=== PATIENT | female | born 1985 | race African-American/Black ===

== ENCOUNTER 2018-01-03 08:36 | Inpatient (IN) | payer OTHER ==
[2018-01-03 09:34] VITALS: BMI 22.0
--- NOTE | 2018-01-03 11:32 | CONSULT ---
[facility] Psychiatric Consult - Data Date of interview: 01/03/18 Admission source: [facility] Identifying data: This is 32 years old female, single, mother of three, living with boyfriend, unemployed, on SSI and SSD, lookong for detox from: Alcohol, Cannabis, Nicotine Substance Abuse History: Cannabis since 17 years old untill present. Alcohol since 20 years old until pfresent. Nicotine since 20 years old untill present Psychiatric History: Patient reports history of Bipolar disorder, history of psytchiatric hospitalizations, most recently 4 weeks ago at [facility] afyter incident with her Father. Currently: [place] 300mg poqd. Patient reports sucidal history with suicidal ideation , with recent OD with on yesterday. Current medications: [place] 600mg po qhs. Prozac 10poqd. Seroquel 25mg po qhs Physical/Sexual Abuse/Trauma History: Denies Additional Comment: [place] 600mg po qhs. Prozac 10poqd. Seroquel 25mg po qhs Mental Status Exam - Mental Status Exam Alert and Oriented to: Person Cognitive Function: Fair Patient Appearance: Well Groomed Mood: Apprehensive Affect: Mood Congruent Patient Behavior: Cooperative Speech Pattern: Appropriate Voice Loudness: Mildly Loud Thought Process: Goal Oriented Thought Disorder: Being Controlled Hallucinations: Denies Suicidal Ideation: Denies Homicidal Ideation: Denies Insight/Judgement: Fair Sleep: Fair Appetite: Fair Muscle strength/Tone: Normal Gait/Station: Normal Additional Comments: [place] 600mg po qhs. Prozac 10poqd. Seroquel 25mg po qhs Psychiatric Findings - Problem List ([place] 1, 2,3) (1) Alcohol dependence Current Visit: Yes Status: Acute (2) Cannabis dependence Current Visit: Yes Status: Acute (3) Nicotine dependence Current Visit: Yes Status: Acute (4) Bipolar I disorder Current Visit: Yes Status: Acute (5) Drug-induced mood disorder Current Visit: Yes Status: Acute - Initial Treatment Plan Initial Treatment Plan: [place] 600mg po qhs. Prozac 10poqd. Seroquel 25mg po qhs
--- NOTE | 2018-01-03 12:19 | HP ---
CIWA Score - CIWA Score Nausea/Vomitin Muscle Tremors: 3 Anxiety: 3 Agitation: 3 Paroxysmal Sweats: 2 Orientation: 0-Oriented Tacttile Disturbances: 2-Mild Itch/Numbness/Burn Auditory Disturbances: 2-Mild Harshness/Frighten Visual Disturbances: 1-Very Mild Sensitivity Headache: 2-Mild CIWA-Ar Total Score: 21 Admission ROS BHS - HPI Chief Complaint: I AM HERE ,NEED HELP TO STOP DRINKING ALCOHOL AND WEED Allergies/Adverse Reactions: Allergies Allergy/AdvReac Type Severity Reaction Status Date / Time bee pollen Allergy Severe Swelling Verified 01/03/18 10:34 No Known Drug Allergies Allergy Verified 01/03/18 12:01 NKDA Allergy Uncoded 01/03/18 10:34 History of Present Illness: THIS 32 YEARS OLD FEMALE WITH ALCOHOL AND MARIJUANA DEPENDENCE,SEEKING DETOX, WITHDRAWAL SYMPTOM, SEIZURE LAST 2014 FROM K2 BIPOLAR DISORDER ,WITH DEPRESSION,PTSD WEIGHT LOSS NICOTINE DEPENDENCE SEEN IN [facility] LAST NIGHT OVERDOSE CLEAR BY PSYCHIATRIST AT [place] Exam Limitations: No Limitations - Ebola screening Have you traveled outside of the country in the last 21 days: No Have you had contact with anyone from an Ebola affected area: No Have you been sick,other than usual withdrawal symptoms: No - Review of Systems Constitutional: Loss of Appetite, Malaise, Night Sweats, Changes in sleep, Weakness, Unintentional Wgt. Loss EENT: reports: Tearing, Nose Congestion Respiratory: reports: No Symptoms reported Cardiac: reports: No Symptoms Reported GI: reports: Diarrhea, Nausea, Vomiting, Abdominal cramping : reports: No Symptoms Reported Musculoskeletal: reports: Back Pain, Muscle Pain Integumentary: reports: Dryness Neuro: reports: Headache, Tremors Endocrine: reports: No Symptoms Reported Hematology: reports: No Symptoms Reported Psychiatric: reports: No Sypmtoms Reported, Judgement Intact, Mood/Affect Appropiate, Depressed Patient History - Patient Medical History Hx Asthma: No Hx Chronic Obstructive Pulmonary Disease (COPD): No Hx Cardiac Disorders: No Hx Hypertension: No Hx Seizures: Yes (drug related seizure in 2016) Hx Diabetes: No Hx Gastrointestinal Disorders: Yes (acid reflux) Hx Genitourinary Disorders: No Hx Sexually Transmitted Disorders: Yes (chlamydia) Hx Renal Disease (ESRD): No Hx Thyroid Disease: No Hx Human Immunodeficiency Virus (HIV): No (LAST 09/04) Hx Hepatitis C: No Hx Depression: Yes Hx Suicide Attempt: Yes (pill overdose, 01/01/2018) Hx Bipolar Disorder: Yes Hx Schizophrenia: No Other Medical History: NO SUICIDAL,NO HOMICIDAL, - Patient Surgical History Past Surgical History: Yes Hx Neurologic Surgery: No Hx Cataract Extraction: No Hx Cardiac Surgery: No Hx Lung Surgery: No Hx Breast Surgery: No Hx Breast Biopsy: No Hx Abdominal Surgery: No Hx Appendectomy: No Hx Cholecystectomy: No Hx Genitourinary Surgery: No Hx Section: No Hx Orthopedic Surgery: No Other Surgical History: corrective sx, right foot at age 9 Anesthesia Reaction: No - PPD History Previous Implant?: Yes Documented Results: Negative w/o proof Implanted On Prior [facility] Admission?: No PPD to be Administered?: Yes - Reproductive History Patient is a Female of Child Bearing Age (11 -55 yrs old): Yes Last Menstrual Period: 12/26/16 Patient : No - Smoking Cessation Smoking history: Current every day smoker Have you smoked in the past 12 months: Yes Aproximately how many cigarettes per day: 10 Hx Chewing Tobacco Use: No Initiated information on smoking cessation: Yes 'Breaking Loose' booklet given: 01/03/18 - Substance & Tx. History Hx Alcohol Use: Yes Hx Substance Use: Yes Substance Use Type: Alcohol, Marijuana Hx Substance Use Treatment: No - Substances Abused Alcohol-vodka Route: Oral Frequency: Daily Amount used: 4-5 pts. Age of first use: 20 Date of Last Use: 01/02/18 Marijuana Route: Smoking Frequency: Daily Amount used: 10-15 joints Age of first use: 17 Date of Last Use: 01/01/18 Family Disease History - Family Disease History Family Disease History: Other: Father (ALCOHOL,DSA), Mother (ALCOHOL,DSA), Brother (ALCOHOL), Sister (ALCOHOL) Admission Physical Exam BHS - Vital Signs Vital Signs: Vital Signs - 24 hr 01/03/18 09:25 Temperature 97.3 F L Pulse Rate 77 Respiratory 18 Rate Blood Pressure 133/71 - Physical General Appearance: Yes: Moderate Distress, Tremorous, Irritable, Sweating, Anxious HEENTM: Yes: Normal ENT Inspection, DULCE, Pharynx Normal Respiratory: Yes: Lungs Clear, Normal Breath Sounds, No Respiratory Distress Neck: Yes: Within Normal Limits, Supple, Trachea in good position Breast: Yes: Breast Exam Deferred Cardiology: Yes: Within Normal Limits, Regular Rhythm, Regular Rate, S1, S2 Abdominal: Yes: Within Normal Limits, Normal Bowel Sounds, Non Tender, Flat, Soft Genitourinary: Yes: Within Normal Limits Back: Yes: Muscle Spasm Musculoskeletal: Yes: Back pain, Muscle Pain Extremities: Yes: Normal Range of Motion, Tremors Neurological: Yes: efficiency expert II-XII NML intact, Fully Oriented, Alert, Motor Strength 5/5 Integumentary: Yes: Dry Lymphatic: Yes: Within Normal Limits - Diagnostic (1) Alcohol dependence with uncomplicated withdrawal Current Visit: Yes Status: Acute (2) Alcohol related seizure Current Visit: Yes Status: Acute (3) Bipolar I disorder Current Visit: Yes Status: Acute (4) PTSD (post-traumatic stress disorder) Current Visit: Yes Status: Acute (5) Weight loss Current Visit: Yes Status: Acute (6) Nicotine dependence Current Visit: Yes Status: Acute Cleared for Admission S - Detox or Rehab [facility] Level of Care: Medically Managed Detox Regimen/Protocol: Librium S Breath Alcohol Content Breath Alcohol Content: 0 Urine Pregancy Test - Result Urine Test Results: Negative- NO Line Present Urine Drug Screen - Results Drug Screen Negative: No Urine Drug Screen Results: THC-Marijuana
[2018-01-03] MEDS ORDERED: LOPERAMIDE HCL 2 MG CAPSULE PO PRN (12:38)
[2018-01-03] MEDS ORDERED: ACETAMINOPHEN 325 MG TABLET (FP) PO PRN (12:38)
[2018-01-03] MEDS ORDERED: MENTHOL/PHENOL 1 EACH UD MM PRN (12:38)
[2018-01-03] MEDS ORDERED: P-EPHED 60MG/TRIPROLIDI 2.5MG TABLET PO PRN (12:38)
[2018-01-03] MEDS ORDERED: MAG HYDROX/AL HYDROX/SIMETH 30 ML UNIT-DOSE CUP PO PRN (12:38)
[2018-01-03] MEDS ORDERED: IBUPROFEN 400 MG TABLET (FP) PO PRN (12:38)
[2018-01-03] MEDS ORDERED: MAGNESIUM CITRATE 300 ML BOTTLE PO PRN (12:38)
[2018-01-03] MEDS ORDERED: MAGNESIUM HYDROX 2400MG/30ML ORAL SUSPENSION 30 ML CUP PO PRN (12:38)
[2018-01-03] MEDS ORDERED: chlordiazePOXIDE HCL 25 MG CAPSULE PO ONE (13:15)
[2018-01-03] MEDS: NICOTINE 21 MG/24 HOURS TOPICAL PATCH TD SCH (14:03)
--- NOTE | 2018-01-03 16:29 | EKG ---
Test Reason : Blood Pressure : / mmHG Vent. Rate : 061 BPM Atrial Rate : 061 BPM P-R Int : 120 ms QRS Dur : 090 ms QT Int : 426 ms P-R-T Axes : 034 054 055 degrees QTc Int : 428 ms NORMAL SINUS RHYTHM SEPTAL INFARCT , AGE UNDETERMINED ABNORMAL ECG NO PREVIOUS ECGS AVAILABLE Confirmed by KALYN JUAREZ MD ([id number]) on 01/03/2018 4:28:51 PM Referred By: Confirmed By:KALYN JUAREZ MD
[2018-01-03] MEDS: chlordiazePOXIDE HCL 25 MG CAPSULE PO SCH ×2 (17:22→22:14)
[2018-01-03 18:14] LABS: URINE APPEARANCE CLEAR; URINE BILIRUBIN NEGATIVE (NEGATIVE); URINE BLOOD NEGATIVE (NEGATIVE); URINE COLOR LTYELLOW; URINE GLUCOSE (UA) NEGATIVE (NEGATIVE); URINE KETONE NEGATIVE (NEGATIVE); URINE LEUK ESTERASE NEGATIVE (NEGATIVE); URINE NITRITE NEGATIVE (NEGATIVE); URINE PROTEIN NEGATIVE (NEGATIVE); URINE UROBILINOGEN NEGATIVE mg/dL (0.2-1.0)
[2018-01-03] MEDS: THIAMINE HCL 100 MG TABLET (FP) PO SCH (22:14)
[2018-01-03] MEDS: LITHIUM CARBONATE 300 MG CAPSULE (FP) PO SCH (22:14)
[2018-01-03] MEDS: QUEtiapine FUMARATE 25 MG TABLET (FP) PO SCH (22:14)
[2018-01-04] MEDS: chlordiazePOXIDE HCL 25 MG CAPSULE PO SCH ×4 (06:00→22:08)
[2018-01-04] MEDS: LITHIUM CARBONATE 300 MG CAPSULE (FP) PO SCH ×2 (06:36→22:08)
[2018-01-04 09:57] LABS: HEMATOCRIT 39.1 % (32.4-45.2); HEMOGLOBIN 12.5 GM/dL (10.7-15.3); MCH 29.6 pg (25.7-33.7); MCHC 31.9 g/dl (32.0-36.0); MEAN CELL VOLUME 92.8 fl (80-96); MEAN PLT VOLUME 9.5 fl (7.5-11.1); PLATELET COUNT 327 K/MM3 (134-434); RBC 4.22 M/mm3 (3.60-5.2); RDW 13.8 % (11.6-15.6); WHITE BLOOD COUNT 7.6 K/mm3 (4.0-10.0)
[2018-01-04 10:07] LABS: ALBUMIN 3.7 g/dl (3.4-5.0); ANION GAP 8 (8-16); BLOOD UREA NITROGEN 10 mg/dL (7-18); CALCIUM 8.9 mg/dL (8.5-10.1); CHLORIDE 104 mmol/L (98-107); CO2 28 mmol/L (21-32); GLUCOSE,RANDOM 70 mg/dL (74-106); POTASSIUM 4.4 mmol/L (3.5-5.1); SODIUM 140 mmol/L (136-145)
[2018-01-04 10:14] LABS: ALK PHOS 105 U/L (45-117); BILIRUBIN,TOTAL 0.5 mg/dL (0.2-1.0); CREATININE 0.7 mg/dL (0.55-1.02); SGOT/AST 28 U/L (15-37); SGPT/ALT 35 U/L (12-78)
--- NOTE | 2018-01-04 11:02 | PN ---
S CIWA - CIWA Score Nausea/Vomitin-No Nausea/No Vomiting Muscle Tremors: 4-Moderate,w/Arms Extend Anxiety: 3 Agitation: 4-Moderately Restless Paroxysmal Sweats: 3 Orientation: 0-Oriented Tacttile Disturbances: 0-None Auditory Disturbances: 0-None Visual Disturbances: 0-None Headache: 0-None Present CIWA-Ar Total Score: 14 BHS Progress Note (SOAP) Subjective: tired sweats irritable sleepy body aches Objective: 01/04/18 11:00 Vital Signs Temperature 97.8 F 01/04/18 06:00 Pulse Rate 80 01/04/18 06:00 Respiratory Rate 18 01/04/18 06:00 Blood Pressure 111/65 01/04/18 06:00 O2 Sat by Pulse Oximetry (%) Laboratory Tests 01/03/18 01/04/18 01/04/18 13:30 06:15 06:15 WBC 7.6 RBC 4.22 Hgb 12.5 Hct 39.1 MCV 92.8 MCH 29.6 MCHC 31.9 L RDW 13.8 Plt Count 327 MPV 9.5 Sodium 140 Potassium 4.4 Chloride 104 Carbon Dioxide 28 Anion Gap 8 BUN 10 Creatinine 0.7 Creat Clearance w eGFR > 60 Random Glucose 70 L Calcium 8.9 Total Bilirubin 0.5 AST 28 ALT 35 Alkaline Phosphatase 105 Total Protein 7.0 Albumin 3.7 Urine Color Ltyellow Urine Appearance Clear Urine pH 6.0 Ur Specific [place] 1.015 Urine Protein Negative Urine Glucose (UA) Negative Urine Ketones Negative Urine Blood Negative Urine Nitrite Negative Urine Bilirubin Negative Urine Urobilinogen Negative Ur Leukocyte Esterase Negative aaox3 lying in bed no acute distress Assessment: 01/04/18 11:01 withdrawal sx Plan: hold 10am librium increase fluids resume detox later
[2018-01-04] MEDS: NICOTINE 21 MG/24 HOURS TOPICAL PATCH TD SCH (11:09)
[2018-01-04] MEDS: FLUoxetine HCL 10 MG CAPSULE (FP) PO SCH (11:10)
[2018-01-04] MEDS: PRENATAL VITAMINS W/ FOLIC ACID TABLET (FP) PO SCH (11:10)
[2018-01-04] MEDS: chlordiazePOXIDE HCL 25 MG CAPSULE PO PRN (19:12)
[2018-01-04] MEDS: hydrOXYzine PAMOATE 50 MG CAPSULE (FP) PO PRN (19:12)
[2018-01-04] MEDS: guaiFENesin/D-METHORPHAN HB 10 ML UNIT-DOSE CUPS PO PRN (22:07)
[2018-01-04] MEDS: THIAMINE HCL 100 MG TABLET (FP) PO SCH (22:08)
[2018-01-04] MEDS: QUEtiapine FUMARATE 25 MG TABLET (FP) PO SCH (22:08)
[2018-01-05] MEDS: chlordiazePOXIDE HCL 25 MG CAPSULE PO PRN (06:30)
[2018-01-05] MEDS: chlordiazePOXIDE HCL 25 MG CAPSULE PO SCH ×2 (06:32→10:53)
[2018-01-05] MEDS: LITHIUM CARBONATE 300 MG CAPSULE (FP) PO SCH ×2 (10:53→22:59)
[2018-01-05] MEDS: PRENATAL VITAMINS W/ FOLIC ACID TABLET (FP) PO SCH (10:53)
[2018-01-05] MEDS: NICOTINE 21 MG/24 HOURS TOPICAL PATCH TD SCH (10:53)
[2018-01-05] MEDS: FLUoxetine HCL 10 MG CAPSULE (FP) PO SCH (10:53)
[2018-01-05] MEDS ORDERED: COLLOIDAL OATMEAL 1 BAR EACH TP PRN (12:31)
[2018-01-05] MEDS: TOLNAFTATE 1% CREAM 15 GM TUBE TP SCH ×2 (13:45→22:58)
[2018-01-05] MEDS: NICOTINE POLACRILEX 2 MG GUM BC PRN (13:48)
--- NOTE | 2018-01-05 13:54 | PN ---
S CIWA - CIWA Score Nausea/Vomitin Muscle Tremors: 3 Anxiety: 3 Agitation: 2 Paroxysmal Sweats: 1-Minimal Palms Moist Orientation: 0-Oriented Tacttile Disturbances: 1-Very Mild Itch/Numbness Auditory Disturbances: 1-Very Mild Visual Disturbances: 0-None Headache: 2-Mild CIWA-Ar Total Score: 16 BHS Progress Note (SOAP) Subjective: ALERT,IRRITABLE,ANXIOUS,INTERRUPTED SLEEP,TREMOR,RAH FACE ,ITCHING BOTH FEET Objective: 01/05/18 13:52 Vital Signs Temperature 98.1 F 01/05/18 09:50 Pulse Rate 97 H 01/05/18 09:50 Respiratory Rate 16 01/05/18 09:50 Blood Pressure 126/72 01/05/18 09:50 O2 Sat by Pulse Oximetry (%) Laboratory Last Values WBC 7.6 K/mm3 (4.0-10.0) 01/04/18 06:15 RBC 4.22 M/mm3 (3.60-5.2) 01/04/18 06:15 Hgb 12.5 GM/dL (10.7-15.3) 01/04/18 06:15 Hct 39.1 % (32.4-45.2) 01/04/18 06:15 MCV 92.8 fl (80-96) 01/04/18 06:15 MCH 29.6 pg (25.7-33.7) 01/04/18 06:15 MCHC 31.9 g/dl (32.0-36.0) L 01/04/18 06:15 RDW 13.8 % (11.6-15.6) 01/04/18 06:15 Plt Count 327 K/MM3 (134-434) 01/04/18 06:15 MPV 9.5 fl (7.5-11.1) 01/04/18 06:15 Sodium 140 mmol/L (136-145) 01/04/18 06:15 Potassium 4.4 mmol/L (3.5-5.1) 01/04/18 06:15 Chloride 104 mmol/L (98-107) 01/04/18 06:15 Carbon Dioxide 28 mmol/L (21-32) 01/04/18 06:15 Anion Gap 8 (8-16) 01/04/18 06:15 BUN 10 mg/dL (7-18) 01/04/18 06:15 Creatinine 0.7 mg/dL (0.55-1.02) 01/04/18 06:15 Creat Clearance w eGFR > 60 (>60) 01/04/18 06:15 Random Glucose 70 mg/dL (74-106) L 01/04/18 06:15 Calcium 8.9 mg/dL (8.5-10.1) 01/04/18 06:15 Total Bilirubin 0.5 mg/dL (0.2-1.0) 01/04/18 06:15 AST 28 U/L (15-37) 01/04/18 06:15 ALT 35 U/L (12-78) 01/04/18 06:15 Alkaline Phosphatase 105 U/L (45-117) 01/04/18 06:15 Total Protein 7.0 g/dl (6.4-8.2) 01/04/18 06:15 Albumin 3.7 g/dl (3.4-5.0) 01/04/18 06:15 Urine Color Ltyellow 01/03/18 13:30 Urine Appearance Clear 01/03/18 13:30 Urine pH 6.0 (5.0-8.0) 01/03/18 13:30 Ur Specific [place] 1.015 (1.001-1.035) 01/03/18 13:30 Urine Protein Negative (NEGATIVE) 01/03/18 13:30 Urine Glucose (UA) Negative (NEGATIVE) 01/03/18 13:30 Urine Ketones Negative (NEGATIVE) 01/03/18 13:30 Urine Blood Negative (NEGATIVE) 01/03/18 13:30 Urine Nitrite Negative (NEGATIVE) 01/03/18 13:30 Urine Bilirubin Negative (NEGATIVE) 01/03/18 13:30 Urine Urobilinogen Negative mg/dL (0.2-1.0) 01/03/18 13:30 Ur Leukocyte Esterase Negative (NEGATIVE) 01/03/18 13:30 RPR Titer Nonreactive (NONREACTIVE) 01/04/18 06:15 HIV 1&2 Antibody Screen Negative 01/04/18 08:00 HIV P24 Antigen Negative 01/04/18 08:00 Assessment: 01/05/18 13:53 WITHDRAWAL SYMPTOM Plan: CONTINUE DETOX,LIDEX CREAM !% FACE BID,AVEENO SOAP,1% TINACTIN CREAM BID FOR TINEA PEDIS
[2018-01-05] MEDS: FLUOCINONIDE 0.05% CREAM (15 GM TUBE) TP SCH ×2 (16:55→23:02)
[2018-01-05] MEDS: chlordiazePOXIDE 5 MG CAPSULE PO SCH ×2 (17:52→22:59)
[2018-01-05] MEDS: guaiFENesin/D-METHORPHAN HB 10 ML UNIT-DOSE CUPS PO PRN (17:55)
[2018-01-05] MEDS: THIAMINE HCL 100 MG TABLET (FP) PO SCH (22:57)
[2018-01-05] MEDS: QUEtiapine FUMARATE 25 MG TABLET (FP) PO SCH (22:58)
[2018-01-05] MEDS: hydrOXYzine PAMOATE 50 MG CAPSULE (FP) PO PRN (23:02)
--- NOTE | 2018-01-06 00:45 | PN ---
[facility] Progress Note Note: Psychiatry Attending's note (delayed) : Asked by CORRIE Rosen to change time of AM dose of lithium. Patient wishes dose dispensed earlier in the morning (9 AM instead of 10 AM). From a conversation that took place (with RN) between 3-4 pm on 01/05/18. Chart is reviewed. Dr Babin's note : read and appreciated. Spoke to patient tonight via telephone. RN on duty,Italia Reyes,witnessed conversation between patient and MD. Subject : treatment with lithium.Discussion of side effects/benefits. Ms Blakely is cooperative,attentive,coherent and goal-directed. Good,clear historian : discharged 4 weeks ago from [facility]. Kept on the psychiatric inpatient service for at least two weeks. On fluoxetine,lithium carbonate and seroquel.Diagnosed with Bipolar Disorder. School Transportation Supervisor informed the patient about the risks of renal dysfunction,tremors thyroid dysfunction,weight gain,hair loss and exacerbation of psoriasis. She is also educated about the mood-stabilizing properties of that drug which translate into wellness,maintenance of adequate functioning, prevention of relapses/rehospitalizations,euthymia and improved quality of life. Patient is expressing ambivalence about continuing treatment with lithium. " I don't like that medication.I hate the way it makes me feel. They gave it to me anyway at the other hospital.I was afraid to refuse. I tried to kill myself three times with lithium.I would prefer something else." Ms Blakely wishes to enter inpatient rehabilitation treatment after completion of detox. She states that she deliberately IGNORED the referral to [facility] OPD clinic. Currently the patient is,technically,without a psychiatric aftercare provider in the community. She is encouraged to pursue plan to transition to rehabilitation care. Verbalizes interest in continuity of care at [facility]. Plan : . [place] level is requested.Patient consents to provide blood sample in AM. . Discontinue lithium. . Enter request for a psychiatric re-consult for discussion of alternate mood stabilizers. . Inquire about bed availability on the rehabilitation units at [facility]. . Reassurance provided to the patient. . Case discussed with CORRIE Fabian (via telephone). . Coverage psychiatrist to follow in AM.
[2018-01-06] MEDS: chlordiazePOXIDE 5 MG CAPSULE PO SCH ×2 (06:15→10:24)
[2018-01-06] MEDS: FLUoxetine HCL 10 MG CAPSULE (FP) PO SCH (10:23)
[2018-01-06] MEDS: PRENATAL VITAMINS W/ FOLIC ACID TABLET (FP) PO SCH (10:23)
[2018-01-06] MEDS: NICOTINE 21 MG/24 HOURS TOPICAL PATCH TD SCH (10:25)
[2018-01-06] MEDS: TOLNAFTATE 1% CREAM 15 GM TUBE TP SCH ×2 (10:25→23:35)
[2018-01-06] MEDS: FLUOCINONIDE 0.05% CREAM (15 GM TUBE) TP SCH ×2 (10:26→23:34)
[2018-01-06] MEDS: NICOTINE POLACRILEX 2 MG GUM BC PRN (15:07)
--- NOTE | 2018-01-06 15:18 | PN ---
BHS Progress Note (SOAP) Subjective: alert oriented x 3 less tremor no sweat had verbal altercation with peer earlier today patient is calm denies anxiety patient wants to go to [facility] inpatient rehab in [facility] Objective: 01/06/18 15:17 Vital Signs Temperature 97.1 F L 01/06/18 14:54 Pulse Rate 123 H 01/06/18 14:54 Respiratory Rate 18 01/06/18 14:54 Blood Pressure 111/78 01/06/18 14:54 O2 Sat by Pulse Oximetry (%) Laboratory Last Values WBC 7.6 K/mm3 (4.0-10.0) 01/04/18 06:15 RBC 4.22 M/mm3 (3.60-5.2) 01/04/18 06:15 Hgb 12.5 GM/dL (10.7-15.3) 01/04/18 06:15 Hct 39.1 % (32.4-45.2) 01/04/18 06:15 MCV 92.8 fl (80-96) 01/04/18 06:15 MCH 29.6 pg (25.7-33.7) 01/04/18 06:15 MCHC 31.9 g/dl (32.0-36.0) L 01/04/18 06:15 RDW 13.8 % (11.6-15.6) 01/04/18 06:15 Plt Count 327 K/MM3 (134-434) 01/04/18 06:15 MPV 9.5 fl (7.5-11.1) 01/04/18 06:15 Sodium 140 mmol/L (136-145) 01/04/18 06:15 Potassium 4.4 mmol/L (3.5-5.1) 01/04/18 06:15 Chloride 104 mmol/L (98-107) 01/04/18 06:15 Carbon Dioxide 28 mmol/L (21-32) 01/04/18 06:15 Anion Gap 8 (8-16) 01/04/18 06:15 BUN 10 mg/dL (7-18) 01/04/18 06:15 Creatinine 0.7 mg/dL (0.55-1.02) 01/04/18 06:15 Creat Clearance w eGFR > 60 (>60) 01/04/18 06:15 Random Glucose 70 mg/dL (74-106) L 01/04/18 06:15 Calcium 8.9 mg/dL (8.5-10.1) 01/04/18 06:15 Total Bilirubin 0.5 mg/dL (0.2-1.0) 01/04/18 06:15 AST 28 U/L (15-37) 01/04/18 06:15 ALT 35 U/L (12-78) 01/04/18 06:15 Alkaline Phosphatase 105 U/L (45-117) 01/04/18 06:15 Total Protein 7.0 g/dl (6.4-8.2) 01/04/18 06:15 Albumin 3.7 g/dl (3.4-5.0) 01/04/18 06:15 Urine Color Ltyellow 01/03/18 13:30 Urine Appearance Clear 01/03/18 13:30 Urine pH 6.0 (5.0-8.0) 01/03/18 13:30 Ur Specific [place] 1.015 (1.001-1.035) 01/03/18 13:30 Urine Protein Negative (NEGATIVE) 01/03/18 13:30 Urine Glucose (UA) Negative (NEGATIVE) 01/03/18 13:30 Urine Ketones Negative (NEGATIVE) 01/03/18 13:30 Urine Blood Negative (NEGATIVE) 01/03/18 13:30 Urine Nitrite Negative (NEGATIVE) 01/03/18 13:30 Urine Bilirubin Negative (NEGATIVE) 01/03/18 13:30 Urine Urobilinogen Negative mg/dL (0.2-1.0) 01/03/18 13:30 Ur Leukocyte Esterase Negative (NEGATIVE) 01/03/18 13:30 RPR Titer Nonreactive (NONREACTIVE) 01/04/18 06:15 HIV 1&2 Antibody Screen Negative 01/04/18 08:00 HIV P24 Antigen Negative 01/04/18 08:00 lab noted Assessment: 01/06/18 15:17 mild withdrawal sx Plan: medically supervised detox
[2018-01-06] MEDS: hydrOXYzine PAMOATE 50 MG CAPSULE (FP) PO PRN (17:28)
[2018-01-06] MEDS: chlordiazePOXIDE HCL 10 MG CAPSULE PO SCH ×2 (17:28→22:49)
[2018-01-06] MEDS: QUEtiapine FUMARATE 25 MG TABLET (FP) PO SCH (22:49)
[2018-01-06] MEDS: THIAMINE HCL 100 MG TABLET (FP) PO SCH (22:49)
[2018-01-07] MEDS: chlordiazePOXIDE HCL 10 MG CAPSULE PO SCH ×2 (07:25→11:15)
[2018-01-07] MEDS: FLUOCINONIDE 0.05% CREAM (15 GM TUBE) TP SCH ×2 (08:59→21:54)
--- NOTE | 2018-01-07 10:02 | DS ---
[facility] Detox Discharge Summary Admission Date: 01/03/18 Discharge Date: 01/07/18 - History Additional Comments: Drug-related seizure Bipolar PTSD Pertinent Past History: Drug-related seizure Bipolar PTSD - Physical Exam Results Vital Signs: Vital Signs Temperature 98.6 F 01/07/18 06:00 Pulse Rate 97 H 01/07/18 06:00 Respiratory Rate 18 01/07/18 06:00 Blood Pressure 113/66 01/07/18 06:00 O2 Sat by Pulse Oximetry (%) Pertinent Admission Physical Exam Findings: withdrawal sx Vital Signs Temperature 98.6 F 01/07/18 06:00 Pulse Rate 97 H 01/07/18 06:00 Respiratory Rate 18 01/07/18 06:00 Blood Pressure 113/66 01/07/18 06:00 O2 Sat by Pulse Oximetry (%) - Treatment Hospital Course: Detox Protocol Followed, Detoxed Safely, Responded well, Discharged Condition Good Patient has Accepted a Rehab Referral to: Outpatient AA 12 step meeting - Medication Discharge Medications: Ambulatory Orders Fluoxetine HCl [Prozac -] 10 mg PO DAILY #30 capsule 01/03/18 [place] Carbonate [Eskalith -] 300 mg PO AM #30 capsule 01/03/18 [place] Carbonate [Eskalith -] 600 mg PO HS #30 capsule 01/03/18 Quetiapine Fumarate [Seroquel -] 25 mg PO HS 01/03/18 - Diagnosis (1) Alcohol dependence with uncomplicated withdrawal Current Visit: Yes Status: Acute (2) Alcohol related seizure Current Visit: Yes Status: Acute (3) Cannabis dependence Current Visit: Yes Status: Acute (4) Nicotine dependence Current Visit: Yes Status: Acute (5) PTSD (post-traumatic stress disorder) Current Visit: Yes Status: Acute - AMA Did Patient Leave Against Medical Advice: No
[2018-01-07] MEDS: TOLNAFTATE 1% CREAM 15 GM TUBE TP SCH ×2 (10:22→21:53)
[2018-01-07] MEDS: PRENATAL VITAMINS W/ FOLIC ACID TABLET (FP) PO SCH (10:22)
[2018-01-07] MEDS: FLUoxetine HCL 10 MG CAPSULE (FP) PO SCH (10:22)
[2018-01-07] MEDS: NICOTINE 21 MG/24 HOURS TOPICAL PATCH TD SCH (10:24)
[2018-01-07] MEDS: hydrOXYzine PAMOATE 50 MG CAPSULE (FP) PO PRN ×2 (11:16→22:51)
[2018-01-07] MEDS ORDERED: PT OWN MED DRAWER 7, Y5N ONE (13:57)
--- NOTE | 2018-01-07 15:27 | PN ---
[facility] Progress Note Note: Psychiatric nurse practitioner: Pt. with a history of bipolar disorder and multiple suicide attempts via overdose of lithium. Spoke to Dr. Macias concerning patient's h/o of two lithium overdoses. Dr. macias recommended patient given alternative options of being started on depakote or topamax. Pt. is not interested in accepting lithium or depakote. Head Coach able to speak to patient and patient is agreeable to starting topamax 25mg BID. Pt. satisfied and receptive to feedback. Will order topamax 25mg BID.
[2018-01-07] MEDS: QUEtiapine FUMARATE 25 MG TABLET (FP) PO SCH (21:52)
[2018-01-07] MEDS: THIAMINE HCL 100 MG TABLET (FP) PO SCH (21:52)
[2018-01-07] MEDS: TOPIRAMATE 25 MG TABLET (FP) PO SCH (21:52)
[2018-01-08] MEDS: FLUOCINONIDE 0.05% CREAM (15 GM TUBE) TP SCH ×2 (09:19→21:09)
[2018-01-08] MEDS: FLUoxetine HCL 10 MG CAPSULE (FP) PO SCH (09:20)
[2018-01-08] MEDS: PRENATAL VITAMINS W/ FOLIC ACID TABLET (FP) PO SCH (09:20)
[2018-01-08] MEDS: NICOTINE 21 MG/24 HOURS TOPICAL PATCH TD SCH (09:20)
[2018-01-08] MEDS: TOLNAFTATE 1% CREAM 15 GM TUBE TP SCH ×2 (09:21→21:09)
[2018-01-08] MEDS: TOPIRAMATE 25 MG TABLET (FP) PO SCH ×2 (09:21→21:06)
--- NOTE | 2018-01-08 15:56 | HP ---
Psychiatrist Admission - Data Date of interview: 01/08/18 Admission source: [address] [place] [address] Identifying data: This is the first admission to [address] [place] [address] for this 32 years old AA female mother of 3 (5 yo boy and girl,2 yo boy).Patient is undomiciled,supported by SSI,SSD. Medical History: unremarkable Psychiatric History: Patient is poor historian since she is reluctant to give information,having hostile attitude,suspicious behavior.According to her and medical record her fisrt contact with psychiatrist was in her when her children were taken away from her(ACS).Patient was admitted to [facility] due to depression,mood instability.She was dx with Bipolar disorder and placed on psychotropic medications.Patient rport multiple psychiatric hospitalizations,multiple suicidal attempts/gestures.Most recent admission was to [facility] where she spet 2 weeks and was discharged 4 weeks before current admission.Patient stopped attending her psychiatrist.Li,Prozac and Seroquel has been restarted while in detox and then Li was discontinued before admission to inpatient rehab.patient was showing mood instability,hostility, reluctancy to talk .She was quarded,suspicious during the intervuew. Physical/Sexual Abuse/Trauma History: patient is not willing to discuss this, stating that is too painful for her and making her feel angry and agressive. Vital Signs: Vital Signs - 24 hr 01/08/18 01/08/18 03:30 07:05 Temperature 98.0 F Pulse Rate 93 H Respiratory 18 18 Rate Blood Pressure 108/69 Allergies/Adverse Reactions: Allergies Allergy/AdvReac Type Severity Reaction Status Date / Time bee pollen Allergy Severe Swelling Verified 01/03/18 10:34 No Known Drug Allergies Allergy Verified 01/03/18 12:01 NKDA Allergy Uncoded 01/03/18 10:34 Date of last physical exam: 01/03/18 Concur with the findings of this exam: Yes - Substance Abuse/Tx History Hx Alcohol Use: Yes (drinking since 20 yo,4-5 pints of hard liquors) Hx Substance Use: Yes (marijuana since 17 yo,10-15 joints daily) Substance Use Type: Alcohol, Marijuana (marijuan ) Hx Substance Use Treatment: Yes (no significant time of abstinence) Mental Status Exam - Mental Status Exam Alert and Oriented to: Time, Place, Person Cognitive Function: Grossly Intact Patient Appearance: Unkempt Mood: Angry, Hostile, Suspicious, Anxious, Expansive, Irritable Affect: Mood Congruent, Labile Patient Behavior: Restless, Impulsive Speech Pattern: Excessive Voice Loudness: Mildly Loud Thought Process: Goal Oriented Thought Disorder: Present Hallucinations: Denies Suicidal Ideation: Denies Homicidal Ideation: Denies Insight/Judgement: Fair Sleep: Fair Appetite: Fair Muscle strength/Tone: Normal Gait/Station: Normal Psychiatric Findings - Problem List ([place] 1, 2,3) (1) Alcohol dependence Current Visit: Yes Status: Chronic (2) Cannabis dependence Current Visit: Yes Status: Chronic (3) Nicotine dependence Current Visit: Yes Status: Chronic (4) Bipolar I disorder Current Visit: Yes Status: Chronic (5) PTSD (post-traumatic stress disorder) Current Visit: Yes Status: Chronic - Initial Treatment Plan Initial Treatment Plan: Continue current medications as per plan.Consider restart [place] which was discontued on admission to inpaient rehabilitation unit. Will monitor progress.Patient will be reevaluated tomorrow.
[2018-01-08] MEDS: THIAMINE HCL 100 MG TABLET (FP) PO SCH (21:06)
[2018-01-08] MEDS: NICOTINE POLACRILEX 2 MG GUM BC PRN (21:09)
[2018-01-08] MEDS: QUEtiapine FUMARATE 25 MG TABLET (FP) PO SCH (22:01)
[2018-01-08] MEDS: hydrOXYzine PAMOATE 50 MG CAPSULE (FP) PO PRN (23:43)
[2018-01-09] MEDS ORDERED: PT OWN MED DRAWER 7, Y5N ONE ×3 (08:54→21:36)
[2018-01-09] MEDS ORDERED: ONDANSETRON *ODT* 4 MG TABLET SL PRN (09:28)
[2018-01-09] MEDS ORDERED: ONDANSETRON *ODT* 4 MG TABLET SL ONE (09:45)
[2018-01-09] MEDS: FLUoxetine HCL 10 MG CAPSULE (FP) PO SCH (10:29)
[2018-01-09] MEDS: PRENATAL VITAMINS W/ FOLIC ACID TABLET (FP) PO SCH (10:30)
[2018-01-09] MEDS: NICOTINE 21 MG/24 HOURS TOPICAL PATCH TD SCH (10:30)
[2018-01-09] MEDS: TOLNAFTATE 1% CREAM 15 GM TUBE TP SCH ×2 (10:30→21:37)
[2018-01-09] MEDS: FLUOCINONIDE 0.05% CREAM (15 GM TUBE) TP SCH ×2 (10:32→21:37)
[2018-01-09] MEDS: LITHIUM CARBONATE 300 MG CAPSULE (FP) PO SCH ×2 (12:02→21:34)
[2018-01-09] MEDS: TOPIRAMATE 25 MG TABLET (FP) PO SCH (12:03)
[2018-01-09] MEDS: MINERAL OIL/PETROLAT/WATER TOPICAL CREAM 113 GM JAR TP SCH ×2 (13:40→21:37)
[2018-01-09] MEDS: THIAMINE HCL 100 MG TABLET (FP) PO SCH (21:34)
[2018-01-09] MEDS: QUEtiapine FUMARATE 50 MG TABLET PO SCH (21:35)
[2018-01-10] MEDS ORDERED: PT OWN MED DRAWER 7, Y5N ONE (08:55)
[2018-01-10] MEDS: LITHIUM CARBONATE 300 MG CAPSULE (FP) PO SCH ×2 (10:13→21:34)
[2018-01-10] MEDS: NICOTINE 21 MG/24 HOURS TOPICAL PATCH TD SCH (10:14)
[2018-01-10] MEDS: FLUOCINONIDE 0.05% CREAM (15 GM TUBE) TP SCH ×2 (10:14→21:45)
[2018-01-10] MEDS: MINERAL OIL/PETROLAT/WATER TOPICAL CREAM 113 GM JAR TP SCH ×2 (10:14→21:50)
[2018-01-10] MEDS: PRENATAL VITAMINS W/ FOLIC ACID TABLET (FP) PO SCH (10:15)
[2018-01-10] MEDS: FLUoxetine HCL 10 MG CAPSULE (FP) PO SCH (10:15)
[2018-01-10] MEDS: TOLNAFTATE 1% CREAM 15 GM TUBE TP SCH ×2 (10:15→21:36)
[2018-01-10] MEDS: QUEtiapine FUMARATE 50 MG TABLET PO SCH (21:34)
[2018-01-10] MEDS: THIAMINE HCL 100 MG TABLET (FP) PO SCH (21:34)
[2018-01-11] MEDS: PRENATAL VITAMINS W/ FOLIC ACID TABLET (FP) PO SCH (10:18)
[2018-01-11] MEDS: LITHIUM CARBONATE 300 MG CAPSULE (FP) PO SCH ×2 (10:18→21:28)
[2018-01-11] MEDS: FLUoxetine HCL 10 MG CAPSULE (FP) PO SCH (10:18)
[2018-01-11] MEDS: NICOTINE 21 MG/24 HOURS TOPICAL PATCH TD SCH (10:19)
[2018-01-11] MEDS: TOLNAFTATE 1% CREAM 15 GM TUBE TP SCH ×2 (10:19→21:29)
[2018-01-11] MEDS: FLUOCINONIDE 0.05% CREAM (15 GM TUBE) TP SCH ×2 (11:53→21:29)
[2018-01-11] MEDS ORDERED: PT OWN MED DRAWER 7, Y5N ONE ×2 (11:53→12:02)
[2018-01-11] MEDS: MINERAL OIL/PETROLAT/WATER TOPICAL CREAM 113 GM JAR TP SCH ×2 (11:55→21:29)
[2018-01-11] MEDS: NICOTINE POLACRILEX 2 MG GUM BC PRN (11:56)
[2018-01-11] MEDS: QUEtiapine FUMARATE 50 MG TABLET PO SCH (21:28)
[2018-01-11] MEDS: THIAMINE HCL 100 MG TABLET (FP) PO SCH (21:28)
[2018-01-12] MEDS ORDERED: PT OWN MED DRAWER 7, Y5N ONE ×2 (08:33→19:48)
[2018-01-12] MEDS: NICOTINE 21 MG/24 HOURS TOPICAL PATCH TD SCH (09:59)
[2018-01-12] MEDS: LITHIUM CARBONATE 300 MG CAPSULE (FP) PO SCH ×2 (09:59→21:28)
[2018-01-12] MEDS: MINERAL OIL/PETROLAT/WATER TOPICAL CREAM 113 GM JAR TP SCH ×2 (09:59→22:07)
[2018-01-12] MEDS: PRENATAL VITAMINS W/ FOLIC ACID TABLET (FP) PO SCH (10:00)
[2018-01-12] MEDS: TOLNAFTATE 1% CREAM 15 GM TUBE TP SCH ×2 (10:00→21:30)
[2018-01-12] MEDS: FLUOCINONIDE 0.05% CREAM (15 GM TUBE) TP SCH ×2 (10:00→21:29)
[2018-01-12] MEDS: FLUoxetine HCL 10 MG CAPSULE (FP) PO SCH (10:00)
[2018-01-12] MEDS: QUEtiapine FUMARATE 50 MG TABLET PO SCH (21:28)
[2018-01-12] MEDS: THIAMINE HCL 100 MG TABLET (FP) PO SCH (21:28)
[2018-01-13] MEDS: PRENATAL VITAMINS W/ FOLIC ACID TABLET (FP) PO SCH (09:26)
[2018-01-13] MEDS: FLUOCINONIDE 0.05% CREAM (15 GM TUBE) TP SCH ×2 (09:26→21:37)
[2018-01-13] MEDS: MINERAL OIL/PETROLAT/WATER TOPICAL CREAM 113 GM JAR TP SCH ×2 (09:26→21:37)
[2018-01-13] MEDS: LITHIUM CARBONATE 300 MG CAPSULE (FP) PO SCH ×2 (09:26→21:36)
[2018-01-13] MEDS: FLUoxetine HCL 10 MG CAPSULE (FP) PO SCH (09:26)
[2018-01-13] MEDS: TOLNAFTATE 1% CREAM 15 GM TUBE TP SCH ×2 (09:26→21:37)
[2018-01-13] MEDS: NICOTINE 21 MG/24 HOURS TOPICAL PATCH TD SCH (09:27)
[2018-01-13] MEDS: NICOTINE POLACRILEX 2 MG GUM BC PRN (09:28)
[2018-01-13] MEDS: QUEtiapine FUMARATE 50 MG TABLET PO SCH (21:36)
[2018-01-13] MEDS: THIAMINE HCL 100 MG TABLET (FP) PO SCH (21:36)
[2018-01-13] MEDS ORDERED: PT OWN MED DRAWER 7, Y5N ONE (21:39)
[2018-01-14] MEDS: PRENATAL VITAMINS W/ FOLIC ACID TABLET (FP) PO SCH (10:16)
[2018-01-14] MEDS: LITHIUM CARBONATE 300 MG CAPSULE (FP) PO SCH ×2 (10:16→21:41)
[2018-01-14] MEDS: FLUoxetine HCL 10 MG CAPSULE (FP) PO SCH (10:16)
[2018-01-14] MEDS: TOLNAFTATE 1% CREAM 15 GM TUBE TP SCH ×2 (10:17→21:43)
[2018-01-14] MEDS: MINERAL OIL/PETROLAT/WATER TOPICAL CREAM 113 GM JAR TP SCH ×2 (10:17→21:42)
[2018-01-14] MEDS: FLUOCINONIDE 0.05% CREAM (15 GM TUBE) TP SCH ×2 (10:17→21:42)
[2018-01-14] MEDS: NICOTINE 21 MG/24 HOURS TOPICAL PATCH TD SCH (10:21)
[2018-01-14] MEDS: SELENIUM SULFIDE 2.5% LOTION 4 OZ. TP SCH (13:09)
[2018-01-14] MEDS: THIAMINE HCL 100 MG TABLET (FP) PO SCH (21:40)
[2018-01-14] MEDS: QUEtiapine FUMARATE 50 MG TABLET PO SCH (21:41)
[2018-01-15] MEDS ORDERED: PT OWN MED DRAWER 7, Y5N ONE ×2 (09:15→10:44)
[2018-01-15] MEDS: PRENATAL VITAMINS W/ FOLIC ACID TABLET (FP) PO SCH (10:29)
[2018-01-15] MEDS: FLUoxetine HCL 10 MG CAPSULE (FP) PO SCH (10:29)
[2018-01-15] MEDS: TOLNAFTATE 1% CREAM 15 GM TUBE TP SCH ×2 (10:29→21:38)
[2018-01-15] MEDS: LITHIUM CARBONATE 300 MG CAPSULE (FP) PO SCH ×2 (10:29→21:36)
[2018-01-15] MEDS: FLUOCINONIDE 0.05% CREAM (15 GM TUBE) TP SCH ×2 (10:30→21:37)
[2018-01-15] MEDS: MINERAL OIL/PETROLAT/WATER TOPICAL CREAM 113 GM JAR TP SCH ×2 (10:32→21:37)
[2018-01-15] MEDS: SELENIUM SULFIDE 2.5% LOTION 4 OZ. TP SCH (10:33)
[2018-01-15] MEDS: NICOTINE 21 MG/24 HOURS TOPICAL PATCH TD SCH (10:33)
--- NOTE | 2018-01-15 11:30 | PN ---
[facility] Progress Note Note: Patient was reevaluated today 01/09/18.She is willing to restart li Carb 300 mg po bid ,add Seroquel 150 mg po hs.Patient is more cooperative and compliant with treatment plan.
[2018-01-15] MEDS: THIAMINE HCL 100 MG TABLET (FP) PO SCH (21:36)
[2018-01-15] MEDS: QUEtiapine FUMARATE 50 MG TABLET PO SCH (21:36)
[2018-01-16] MEDS ORDERED: PT OWN MED DRAWER 7, Y5N ONE (09:12)
[2018-01-16] MEDS: LITHIUM CARBONATE 300 MG CAPSULE (FP) PO SCH ×2 (10:19→21:40)
[2018-01-16] MEDS: MINERAL OIL/PETROLAT/WATER TOPICAL CREAM 113 GM JAR TP SCH ×2 (10:20→21:42)
[2018-01-16] MEDS: NICOTINE 21 MG/24 HOURS TOPICAL PATCH TD SCH (10:20)
[2018-01-16] MEDS: FLUOCINONIDE 0.05% CREAM (15 GM TUBE) TP SCH ×2 (10:20→21:41)
[2018-01-16] MEDS: PRENATAL VITAMINS W/ FOLIC ACID TABLET (FP) PO SCH (10:20)
[2018-01-16] MEDS: SELENIUM SULFIDE 2.5% LOTION 4 OZ. TP SCH (10:21)
[2018-01-16] MEDS: TOLNAFTATE 1% CREAM 15 GM TUBE TP SCH ×3 (10:21→21:41)
[2018-01-16] MEDS: FLUoxetine HCL 10 MG CAPSULE (FP) PO SCH (10:21)
[2018-01-16] MEDS: QUEtiapine FUMARATE 50 MG TABLET PO SCH (21:40)
[2018-01-16] MEDS: THIAMINE HCL 100 MG TABLET (FP) PO SCH (21:40)
[2018-01-17] MEDS ORDERED: PT OWN MED DRAWER 7, Y5N ONE ×2 (08:25→12:13)
[2018-01-17] MEDS: LITHIUM CARBONATE 300 MG CAPSULE (FP) PO SCH ×2 (10:39→21:52)
[2018-01-17] MEDS: FLUoxetine HCL 10 MG CAPSULE (FP) PO SCH (10:39)
[2018-01-17] MEDS: PRENATAL VITAMINS W/ FOLIC ACID TABLET (FP) PO SCH (10:39)
[2018-01-17] MEDS: FLUOCINONIDE 0.05% CREAM (15 GM TUBE) TP SCH ×2 (10:40→21:56)
[2018-01-17] MEDS: MINERAL OIL/PETROLAT/WATER TOPICAL CREAM 113 GM JAR TP SCH ×2 (10:40→21:53)
[2018-01-17] MEDS: TOLNAFTATE 1% CREAM 15 GM TUBE TP SCH ×2 (10:41→21:52)
[2018-01-17] MEDS: SELENIUM SULFIDE 2.5% LOTION 4 OZ. TP SCH (10:41)
[2018-01-17] MEDS: NICOTINE 21 MG/24 HOURS TOPICAL PATCH TD SCH (10:57)
[2018-01-17] MEDS: QUEtiapine FUMARATE 50 MG TABLET PO SCH (21:52)
[2018-01-17] MEDS: THIAMINE HCL 100 MG TABLET (FP) PO SCH (21:52)
[2018-01-18] MEDS ORDERED: PT OWN MED DRAWER 7, Y5N ONE ×4 (09:03→19:39)
[2018-01-18] MEDS: PRENATAL VITAMINS W/ FOLIC ACID TABLET (FP) PO SCH (10:37)
[2018-01-18] MEDS: FLUoxetine HCL 10 MG CAPSULE (FP) PO SCH (10:37)
[2018-01-18] MEDS: LITHIUM CARBONATE 300 MG CAPSULE (FP) PO SCH ×2 (10:37→21:48)
[2018-01-18] MEDS: MINERAL OIL/PETROLAT/WATER TOPICAL CREAM 113 GM JAR TP SCH ×2 (10:38→21:48)
[2018-01-18] MEDS: SELENIUM SULFIDE 2.5% LOTION 4 OZ. TP SCH (10:38)
[2018-01-18] MEDS: NICOTINE 21 MG/24 HOURS TOPICAL PATCH TD SCH (10:38)
[2018-01-18] MEDS: FLUOCINONIDE 0.05% CREAM (15 GM TUBE) TP SCH ×2 (10:38→22:23)
[2018-01-18] MEDS: TOLNAFTATE 1% CREAM 15 GM TUBE TP SCH ×2 (10:38→21:48)
--- NOTE | 2018-01-18 15:23 | PN ---
Psychiatric Progress Note Vital Signs: Vital Signs Period Temp Pulse Resp BP Sys/Valdes Pulse Ox Last 24 Hr Date of Session: 01/18/18 Chief Complaint:: Kb drowsy at the morning,probably as a result of Seroquel dose. HPI: Alcohol,Cannabis dependence comorbid with Bipolar disorder. ROS: unremarkable Current Medications: Active Medications Generic Name Dose Route Start Last Admin Trade Name Freq PRN Reason Stop Dose Admin Acetaminophen 650 mg 01/03/18 12:38 Tylenol - PO Q4H PRN FEVER Al Hydroxide/Mg Hydroxide 30 ml 01/03/18 12:38 Mylanta Oral Suspension - PO Q6H PRN DYSPEPSIA Colloidal Oatmeal 1 applic 01/05/18 12:31 01/05/18 17:55 Aveeno Soap - TP 1 applic DAILY PRN Administration HYGEINE Eucalyptus/Menthol/Phenol/Sorbitol 1 each 01/03/18 12:38 Cepastat Lozenge - MM Q4H PRN SORE THROAT Fluocinonide 1 applic 01/05/18 12:30 01/18/18 10:38 Lidex 0.05% Cream - TP Not Given BID CARMELO Fluoxetine HCl 10 mg 01/04/18 10:00 01/18/18 10:37 Prozac - PO 10 mg DAILY CARMELO Administration Guaifenesin 10 ml 01/03/18 12:38 01/05/18 17:55 Robitussin Dm - PO 10 ml Q6H PRN Administration COUGH Hydroxyzine Pamoate 50 mg 01/03/18 12:38 01/08/18 23:43 Vistaril - PO 50 mg Q4H PRN Administration AGITATION Ibuprofen 400 mg 01/03/18 12:38 Motrin - PO Q6H PRN PAIN LEVEL 4-6 [place] Carbonate 300 mg 01/09/18 11:00 01/18/18 10:37 Eskalith - PO 300 mg BID CARMELO Administration Loperamide HCl 4 mg 01/03/18 12:38 Imodium - PO Q6H PRN DIARRHEA Magnesium Citrate 300 ml 01/03/18 12:38 Citroma - PO Q48H PRN CONSTIPATION Magnesium Hydroxide 30 ml 01/03/18 12:38 Milk Of Magnesia - PO DAILY PRN CONSTIPATION Multi-Ingredient Lotion 1 applic 01/09/18 12:45 01/18/18 10:38 Eucerin (Small Jar) - TP Not Given BID CARMELO Nicotine 21 mg 01/03/18 13:15 01/18/18 10:38 Nicoderm Patch - TD Not Given DAILY CARMELO Nicotine Polacrilex 2 mg 01/03/18 12:38 01/13/18 09:28 Nicorette Gum - BC 2 mg Q2H PRN Administration NICOTINE REPLACEMENT RX Ondansetron HCl 4 mg 01/09/18 09:28 Zofran Odt - SL Q6H PRN NAUSEA AND/OR VOMITING Multivit/Folic Acid/Iron 1 tab 01/04/18 10:00 01/18/18 10:37 Vitamins (Sjr) - PO 1 tab DAILY CARMELO Administration Pseudoephedrine/Triprolidine 1 combo 01/03/18 12:38 Actifed - PO TID PRN NASAL CONGESTION Selenium Sulfide 1 applic 01/14/18 10:30 01/18/18 10:38 Selsun 2.5% Lotion - TP 01/21/18 10:29 Not Given DAILY CARMELO Thiamine HCl 100 mg 01/03/18 22:00 01/17/18 21:52 Vitamin B1 - PO 100 mg HS CARMELO Administration Tolnaftate 1 applic 01/05/18 12:45 01/18/18 10:38 Tinactin 1% Cream - TP 1 applic BID CARMELO Administration Current Side Effect: No Lab tests ordered: No Lab tests reviewed: Yes Provider note:: Chart was revuewed,met with the patient .She addressed some drowsiness at the morning ,sleepiness during the day.Properties of Seroquel has been discussed with the patient including benefits, side effects (sedation, fatique,sleepiness) and dose adjustment.Continue current medicatiosn as per plan. Seroquel 150 mg po hs will be adjusted to 100 mg po hs.Obtain [place] level. Emotional support provided. Total face to face time:: 30 Mental Status Exam - Mental Status Exam Alert and Oriented to: Time, Place, Person Cognitive Function: Grossly Intact Patient Appearance: Well Groomed Mood: Euthymic Affect: Mood Congruent Patient Behavior: Cooperative Speech Pattern: Clear Voice Loudness: Normal Thought Disorder: Being Controlled Hallucinations: Denies Suicidal Ideation: Denies Insight/Judgement: Fair Sleep: Fair Appetite: Good Muscle strength/Tone: Normal Gait/Station: Normal Psychiatric Treatment Plan - Problem List (1) Alcohol dependence Current Visit: Yes (2) Cannabis dependence Current Visit: Yes (3) Nicotine dependence Current Visit: Yes (4) Bipolar I disorder Current Visit: Yes (5) PTSD (post-traumatic stress disorder) Current Visit: Yes
[2018-01-18] MEDS: THIAMINE HCL 100 MG TABLET (FP) PO SCH (21:48)
[2018-01-18] MEDS: QUEtiapine FUMARATE 100 MG TABLET (FP) PO SCH (22:22)
--- NOTE | 2018-01-18 22:23 | PN ---
S Progress Note Note: was called by the nurse to enter Seroquel 100 mg po hs order, reviewed the chart as per 's note Seroquel decreased [id number] mg to 100 mg, order placed.
[2018-01-19] MEDS: LITHIUM CARBONATE 300 MG CAPSULE (FP) PO SCH ×2 (10:26→21:39)
[2018-01-19] MEDS: PRENATAL VITAMINS W/ FOLIC ACID TABLET (FP) PO SCH (10:26)
[2018-01-19] MEDS: MINERAL OIL/PETROLAT/WATER TOPICAL CREAM 113 GM JAR TP SCH ×2 (10:26→21:40)
[2018-01-19] MEDS: FLUoxetine HCL 10 MG CAPSULE (FP) PO SCH (10:26)
[2018-01-19] MEDS: NICOTINE 21 MG/24 HOURS TOPICAL PATCH TD SCH (10:26)
[2018-01-19] MEDS: TOLNAFTATE 1% CREAM 15 GM TUBE TP SCH ×2 (10:28→21:39)
[2018-01-19] MEDS: SELENIUM SULFIDE 2.5% LOTION 4 OZ. TP SCH (10:29)
[2018-01-19] MEDS: FLUOCINONIDE 0.05% CREAM (15 GM TUBE) TP SCH ×2 (10:29→21:40)
[2018-01-19] MEDS ORDERED: PT OWN MED DRAWER 7, Y5N ONE (10:50)
[2018-01-19] MEDS: THIAMINE HCL 100 MG TABLET (FP) PO SCH (21:38)
[2018-01-19] MEDS: QUEtiapine FUMARATE 100 MG TABLET (FP) PO SCH (21:39)
[2018-01-20] MEDS ORDERED: PT OWN MED DRAWER 7, Y5N ONE (08:49)
[2018-01-20] MEDS: FLUoxetine HCL 10 MG CAPSULE (FP) PO SCH (10:17)
[2018-01-20] MEDS: PRENATAL VITAMINS W/ FOLIC ACID TABLET (FP) PO SCH (10:17)
[2018-01-20] MEDS: MINERAL OIL/PETROLAT/WATER TOPICAL CREAM 113 GM JAR TP SCH ×2 (10:17→21:35)
[2018-01-20] MEDS: LITHIUM CARBONATE 300 MG CAPSULE (FP) PO SCH ×2 (10:17→21:34)
[2018-01-20] MEDS: FLUOCINONIDE 0.05% CREAM (15 GM TUBE) TP SCH ×2 (10:18→21:35)
[2018-01-20] MEDS: SELENIUM SULFIDE 2.5% LOTION 4 OZ. TP SCH (10:18)
[2018-01-20] MEDS: NICOTINE 21 MG/24 HOURS TOPICAL PATCH TD SCH (10:18)
[2018-01-20] MEDS: TOLNAFTATE 1% CREAM 15 GM TUBE TP SCH ×2 (10:18→21:34)
[2018-01-20] MEDS: THIAMINE HCL 100 MG TABLET (FP) PO SCH (21:34)
[2018-01-20] MEDS: QUEtiapine FUMARATE 100 MG TABLET (FP) PO SCH (21:34)
[2018-01-21] MEDS ORDERED: PT OWN MED DRAWER 7, Y5N ONE (08:57)
[2018-01-21] MEDS: MINERAL OIL/PETROLAT/WATER TOPICAL CREAM 113 GM JAR TP SCH ×2 (10:30→21:37)
[2018-01-21] MEDS: LITHIUM CARBONATE 300 MG CAPSULE (FP) PO SCH ×2 (10:30→21:36)
[2018-01-21] MEDS: FLUoxetine HCL 10 MG CAPSULE (FP) PO SCH (10:30)
[2018-01-21] MEDS: PRENATAL VITAMINS W/ FOLIC ACID TABLET (FP) PO SCH (10:30)
[2018-01-21] MEDS: NICOTINE 21 MG/24 HOURS TOPICAL PATCH TD SCH (10:31)
[2018-01-21] MEDS: SELENIUM SULFIDE 2.5% LOTION 4 OZ. TP SCH (10:31)
[2018-01-21] MEDS: FLUOCINONIDE 0.05% CREAM (15 GM TUBE) TP SCH ×2 (10:31→21:37)
[2018-01-21] MEDS: TOLNAFTATE 1% CREAM 15 GM TUBE TP SCH ×2 (10:31→21:38)
[2018-01-21] MEDS: THIAMINE HCL 100 MG TABLET (FP) PO SCH (21:36)
[2018-01-21] MEDS: QUEtiapine FUMARATE 100 MG TABLET (FP) PO SCH (21:36)
[2018-01-22] MEDS ORDERED: HYDROCORTISONE 1% TOPICAL LOTION 118 ML BOTTLE TP PRN (00:01)
[2018-01-22] MEDS ORDERED: PT OWN MED DRAWER 7, Y5N ONE (09:14)
[2018-01-22] MEDS: FLUoxetine HCL 10 MG CAPSULE (FP) PO SCH (10:52)
[2018-01-22] MEDS: MINERAL OIL/PETROLAT/WATER TOPICAL CREAM 113 GM JAR TP SCH ×2 (10:53→21:32)
[2018-01-22] MEDS: TOLNAFTATE 1% CREAM 15 GM TUBE TP SCH ×2 (10:53→21:32)
[2018-01-22] MEDS: PRENATAL VITAMINS W/ FOLIC ACID TABLET (FP) PO SCH (10:53)
[2018-01-22] MEDS: LITHIUM CARBONATE 300 MG CAPSULE (FP) PO SCH ×2 (10:53→21:32)
[2018-01-22] MEDS: FLUOCINONIDE 0.05% CREAM (15 GM TUBE) TP SCH (10:54)
[2018-01-22] MEDS: NICOTINE 21 MG/24 HOURS TOPICAL PATCH TD SCH (10:54)
[2018-01-22] MEDS: THIAMINE HCL 100 MG TABLET (FP) PO SCH (21:32)
[2018-01-22] MEDS: QUEtiapine FUMARATE 100 MG TABLET (FP) PO SCH (21:32)
[2018-01-23] MEDS ORDERED: PT OWN MED DRAWER 7, Y5N ONE (08:55)
[2018-01-23] MEDS: FLUoxetine HCL 10 MG CAPSULE (FP) PO SCH (10:27)
[2018-01-23] MEDS: PRENATAL VITAMINS W/ FOLIC ACID TABLET (FP) PO SCH (10:27)
[2018-01-23] MEDS: LITHIUM CARBONATE 300 MG CAPSULE (FP) PO SCH ×2 (10:27→22:04)
[2018-01-23] MEDS: MINERAL OIL/PETROLAT/WATER TOPICAL CREAM 113 GM JAR TP SCH ×2 (10:28→22:05)
[2018-01-23] MEDS: NICOTINE 21 MG/24 HOURS TOPICAL PATCH TD SCH (10:29)
[2018-01-23] MEDS: TOLNAFTATE 1% CREAM 15 GM TUBE TP SCH ×2 (10:29→22:05)
[2018-01-23] MEDS: QUEtiapine FUMARATE 100 MG TABLET (FP) PO SCH (22:04)
[2018-01-23] MEDS: THIAMINE HCL 100 MG TABLET (FP) PO SCH (22:04)
[2018-01-24] MEDS: NICOTINE 21 MG/24 HOURS TOPICAL PATCH TD SCH (10:29)
[2018-01-24] MEDS: LITHIUM CARBONATE 300 MG CAPSULE (FP) PO SCH ×2 (10:29→21:50)
[2018-01-24] MEDS: FLUoxetine HCL 10 MG CAPSULE (FP) PO SCH (10:30)
[2018-01-24] MEDS: MINERAL OIL/PETROLAT/WATER TOPICAL CREAM 113 GM JAR TP SCH ×2 (10:30→21:50)
[2018-01-24] MEDS: TOLNAFTATE 1% CREAM 15 GM TUBE TP SCH ×2 (10:30→21:51)
[2018-01-24] MEDS: PRENATAL VITAMINS W/ FOLIC ACID TABLET (FP) PO SCH (10:30)
[2018-01-24] MEDS ORDERED: PT OWN MED DRAWER 7, Y5N ONE ×2 (19:43→22:29)
[2018-01-24] MEDS: QUEtiapine FUMARATE 100 MG TABLET (FP) PO SCH (21:50)
[2018-01-24] MEDS: THIAMINE HCL 100 MG TABLET (FP) PO SCH (21:50)
[2018-01-25] MEDS ORDERED: PT OWN MED DRAWER 7, Y5N ONE (08:50)
[2018-01-25] MEDS: PRENATAL VITAMINS W/ FOLIC ACID TABLET (FP) PO SCH (10:42)
[2018-01-25] MEDS: TOLNAFTATE 1% CREAM 15 GM TUBE TP SCH ×2 (10:42→21:45)
[2018-01-25] MEDS: LITHIUM CARBONATE 300 MG CAPSULE (FP) PO SCH ×2 (10:42→21:45)
[2018-01-25] MEDS: FLUoxetine HCL 10 MG CAPSULE (FP) PO SCH (10:42)
[2018-01-25] MEDS: MINERAL OIL/PETROLAT/WATER TOPICAL CREAM 113 GM JAR TP SCH ×2 (10:43→21:46)
[2018-01-25] MEDS: NICOTINE 21 MG/24 HOURS TOPICAL PATCH TD SCH (10:43)
[2018-01-25] MEDS: THIAMINE HCL 100 MG TABLET (FP) PO SCH (21:45)
[2018-01-25] MEDS: QUEtiapine FUMARATE 100 MG TABLET (FP) PO SCH (21:45)
[2018-01-26] MEDS: NICOTINE 21 MG/24 HOURS TOPICAL PATCH TD SCH (10:31)
[2018-01-26] MEDS: MINERAL OIL/PETROLAT/WATER TOPICAL CREAM 113 GM JAR TP SCH ×2 (10:33→21:55)
[2018-01-26] MEDS: TOLNAFTATE 1% CREAM 15 GM TUBE TP SCH ×2 (10:33→21:55)
[2018-01-26] MEDS: PRENATAL VITAMINS W/ FOLIC ACID TABLET (FP) PO SCH (10:33)
[2018-01-26] MEDS: LITHIUM CARBONATE 300 MG CAPSULE (FP) PO SCH ×2 (10:33→21:54)
[2018-01-26] MEDS: FLUoxetine HCL 10 MG CAPSULE (FP) PO SCH (10:33)
[2018-01-26] MEDS: QUEtiapine FUMARATE 100 MG TABLET (FP) PO SCH (21:54)
[2018-01-26] MEDS: THIAMINE HCL 100 MG TABLET (FP) PO SCH (21:54)
[2018-01-27] MEDS ORDERED: PT OWN MED DRAWER 7, Y5N ONE (08:59)
[2018-01-27] MEDS: FLUoxetine HCL 10 MG CAPSULE (FP) PO SCH (10:31)
[2018-01-27] MEDS: LITHIUM CARBONATE 300 MG CAPSULE (FP) PO SCH ×2 (10:31→22:00)
[2018-01-27] MEDS: NICOTINE 21 MG/24 HOURS TOPICAL PATCH TD SCH (10:31)
[2018-01-27] MEDS: PRENATAL VITAMINS W/ FOLIC ACID TABLET (FP) PO SCH (10:31)
[2018-01-27] MEDS: MINERAL OIL/PETROLAT/WATER TOPICAL CREAM 113 GM JAR TP SCH ×2 (10:32→22:01)
[2018-01-27] MEDS: TOLNAFTATE 1% CREAM 15 GM TUBE TP SCH ×2 (10:34→22:01)
[2018-01-27] MEDS: THIAMINE HCL 100 MG TABLET (FP) PO SCH (22:00)
[2018-01-27] MEDS: QUEtiapine FUMARATE 100 MG TABLET (FP) PO SCH (22:00)
[2018-01-28] MEDS ORDERED: PT OWN MED DRAWER 7, Y5N ONE (08:50)
[2018-01-28] MEDS: FLUoxetine HCL 10 MG CAPSULE (FP) PO SCH (10:35)
[2018-01-28] MEDS: PRENATAL VITAMINS W/ FOLIC ACID TABLET (FP) PO SCH (10:35)
[2018-01-28] MEDS: LITHIUM CARBONATE 300 MG CAPSULE (FP) PO SCH ×2 (10:35→21:49)
[2018-01-28] MEDS: TOLNAFTATE 1% CREAM 15 GM TUBE TP SCH ×2 (10:36→21:49)
[2018-01-28] MEDS: MINERAL OIL/PETROLAT/WATER TOPICAL CREAM 113 GM JAR TP SCH ×2 (10:36→21:49)
[2018-01-28] MEDS: NICOTINE 21 MG/24 HOURS TOPICAL PATCH TD SCH (10:36)
[2018-01-28] MEDS: QUEtiapine FUMARATE 100 MG TABLET (FP) PO SCH (21:49)
[2018-01-28] MEDS: THIAMINE HCL 100 MG TABLET (FP) PO SCH (21:49)
[2018-01-29] MEDS ORDERED: PT OWN MED DRAWER 7, Y5N ONE (09:18)
[2018-01-29] MEDS: LITHIUM CARBONATE 300 MG CAPSULE (FP) PO SCH ×2 (10:31→21:57)
[2018-01-29] MEDS: FLUoxetine HCL 10 MG CAPSULE (FP) PO SCH (10:31)
[2018-01-29] MEDS: NICOTINE 21 MG/24 HOURS TOPICAL PATCH TD SCH (10:31)
[2018-01-29] MEDS: PRENATAL VITAMINS W/ FOLIC ACID TABLET (FP) PO SCH (10:31)
[2018-01-29] MEDS: TOLNAFTATE 1% CREAM 15 GM TUBE TP SCH ×2 (10:32→21:57)
[2018-01-29] MEDS: MINERAL OIL/PETROLAT/WATER TOPICAL CREAM 113 GM JAR TP SCH ×2 (10:32→21:57)
[2018-01-29] MEDS: THIAMINE HCL 100 MG TABLET (FP) PO SCH (21:57)
[2018-01-29] MEDS: QUEtiapine FUMARATE 100 MG TABLET (FP) PO SCH (21:57)
[2018-01-30] MEDS: LITHIUM CARBONATE 300 MG CAPSULE (FP) PO SCH ×2 (10:22→22:06)
[2018-01-30] MEDS: PRENATAL VITAMINS W/ FOLIC ACID TABLET (FP) PO SCH (10:23)
[2018-01-30] MEDS: NICOTINE 21 MG/24 HOURS TOPICAL PATCH TD SCH (10:23)
[2018-01-30] MEDS: TOLNAFTATE 1% CREAM 15 GM TUBE TP SCH ×2 (10:23→22:07)
[2018-01-30] MEDS: FLUoxetine HCL 10 MG CAPSULE (FP) PO SCH (10:23)
[2018-01-30] MEDS: MINERAL OIL/PETROLAT/WATER TOPICAL CREAM 113 GM JAR TP SCH ×2 (10:23→22:06)
[2018-01-30] MEDS: QUEtiapine FUMARATE 100 MG TABLET (FP) PO SCH (22:06)
[2018-01-30] MEDS: THIAMINE HCL 100 MG TABLET (FP) PO SCH (22:06)
[2018-01-31] MEDS: NICOTINE 21 MG/24 HOURS TOPICAL PATCH TD SCH (09:59)
[2018-01-31] MEDS: LITHIUM CARBONATE 300 MG CAPSULE (FP) PO SCH ×2 (09:59→21:51)
[2018-01-31] MEDS: PRENATAL VITAMINS W/ FOLIC ACID TABLET (FP) PO SCH (09:59)
[2018-01-31] MEDS: MINERAL OIL/PETROLAT/WATER TOPICAL CREAM 113 GM JAR TP SCH ×2 (09:59→21:53)
[2018-01-31] MEDS: FLUoxetine HCL 10 MG CAPSULE (FP) PO SCH (10:00)
[2018-01-31] MEDS: TOLNAFTATE 1% CREAM 15 GM TUBE TP SCH ×2 (10:00→21:52)
[2018-01-31] MEDS: QUEtiapine FUMARATE 100 MG TABLET (FP) PO SCH (21:51)
[2018-01-31] MEDS: THIAMINE HCL 100 MG TABLET (FP) PO SCH (21:51)
[2018-02-01] MEDS ORDERED: PT OWN MED DRAWER 7, Y5N ONE (09:17)
[2018-02-01] MEDS: LITHIUM CARBONATE 300 MG CAPSULE (FP) PO SCH ×2 (10:26→21:58)
[2018-02-01] MEDS: FLUoxetine HCL 10 MG CAPSULE (FP) PO SCH (10:26)
[2018-02-01] MEDS: PRENATAL VITAMINS W/ FOLIC ACID TABLET (FP) PO SCH (10:26)
[2018-02-01] MEDS: NICOTINE 21 MG/24 HOURS TOPICAL PATCH TD SCH (10:26)
[2018-02-01] MEDS: MINERAL OIL/PETROLAT/WATER TOPICAL CREAM 113 GM JAR TP SCH ×2 (10:27→21:59)
[2018-02-01] MEDS: TOLNAFTATE 1% CREAM 15 GM TUBE TP SCH ×2 (10:27→21:59)
[2018-02-01] MEDS: QUEtiapine FUMARATE 100 MG TABLET (FP) PO SCH (21:59)
[2018-02-01] MEDS: THIAMINE HCL 100 MG TABLET (FP) PO SCH (21:59)
[2018-02-02] MEDS: PRENATAL VITAMINS W/ FOLIC ACID TABLET (FP) PO SCH (11:43)
[2018-02-02] MEDS: NICOTINE 21 MG/24 HOURS TOPICAL PATCH TD SCH (11:43)
[2018-02-02] MEDS: LITHIUM CARBONATE 300 MG CAPSULE (FP) PO SCH ×2 (11:43→21:53)
[2018-02-02] MEDS: FLUoxetine HCL 10 MG CAPSULE (FP) PO SCH (11:43)
[2018-02-02] MEDS: MINERAL OIL/PETROLAT/WATER TOPICAL CREAM 113 GM JAR TP SCH ×2 (11:44→21:56)
[2018-02-02] MEDS: TOLNAFTATE 1% CREAM 15 GM TUBE TP SCH ×2 (11:44→21:56)
[2018-02-02] MEDS: THIAMINE HCL 100 MG TABLET (FP) PO SCH (21:53)
[2018-02-02] MEDS: QUEtiapine FUMARATE 100 MG TABLET (FP) PO SCH (21:53)
[2018-02-03] MEDS: LITHIUM CARBONATE 300 MG CAPSULE (FP) PO SCH ×2 (10:24→22:00)
[2018-02-03] MEDS: PRENATAL VITAMINS W/ FOLIC ACID TABLET (FP) PO SCH (10:24)
[2018-02-03] MEDS: FLUoxetine HCL 10 MG CAPSULE (FP) PO SCH (10:24)
[2018-02-03] MEDS: TOLNAFTATE 1% CREAM 15 GM TUBE TP SCH ×2 (10:25→22:00)
[2018-02-03] MEDS: NICOTINE 21 MG/24 HOURS TOPICAL PATCH TD SCH (10:25)
[2018-02-03] MEDS: MINERAL OIL/PETROLAT/WATER TOPICAL CREAM 113 GM JAR TP SCH ×2 (10:25→22:01)
[2018-02-03] MEDS: QUEtiapine FUMARATE 100 MG TABLET (FP) PO SCH (22:00)
[2018-02-03] MEDS: THIAMINE HCL 100 MG TABLET (FP) PO SCH (22:00)
[2018-02-04 07:44] VITALS: BP 112/77; PULSE 86; TEMP 97.8
[2018-02-04] MEDS: LITHIUM CARBONATE 300 MG CAPSULE (FP) PO SCH (09:55)
[2018-02-04] MEDS: TOLNAFTATE 1% CREAM 15 GM TUBE TP SCH (09:55)
[2018-02-04] MEDS: FLUoxetine HCL 10 MG CAPSULE (FP) PO SCH (09:55)
[2018-02-04] MEDS: MINERAL OIL/PETROLAT/WATER TOPICAL CREAM 113 GM JAR TP SCH (09:55)
[2018-02-04] MEDS: PRENATAL VITAMINS W/ FOLIC ACID TABLET (FP) PO SCH (09:55)
[2018-02-04] MEDS: NICOTINE 21 MG/24 HOURS TOPICAL PATCH TD SCH (09:56)
--- NOTE | 2018-02-04 10:09 | PN ---
Psychiatric Progress Note Vital Signs: Vital Signs Period Temp Pulse Resp BP Sys/Valdes Pulse Ox Last 24 Hr 97.8 F 86 17-18 112/77 Date of Session: 02/04/18 Chief Complaint:: Discharge visit HPI: Alcohol,Cannabis comorbid with Bipolar disorder,PTSD. Current Medications: Active Medications Generic Name Dose Route Start Last Admin Trade Name Freq PRN Reason Stop Dose Admin Acetaminophen 650 mg 01/03/18 12:38 Tylenol - PO Q4H PRN FEVER Al Hydroxide/Mg Hydroxide 30 ml 01/03/18 12:38 Mylanta Oral Suspension - PO Q6H PRN DYSPEPSIA Colloidal Oatmeal 1 applic 01/05/18 12:31 01/05/18 17:55 Aveeno Soap - TP 1 applic DAILY PRN Administration HYGEINE Eucalyptus/Menthol/Phenol/Sorbitol 1 each 01/03/18 12:38 Cepastat Lozenge - MM Q4H PRN SORE THROAT Fluoxetine HCl 10 mg 01/04/18 10:00 02/04/18 09:55 Prozac - PO 10 mg DAILY CARMELO Administration Guaifenesin 10 ml 01/03/18 12:38 01/05/18 17:55 Robitussin Dm - PO 10 ml Q6H PRN Administration COUGH Hydroxyzine Pamoate 50 mg 01/03/18 12:38 01/08/18 23:43 Vistaril - PO 50 mg Q4H PRN Administration AGITATION Ibuprofen 400 mg 01/03/18 12:38 Motrin - PO Q6H PRN PAIN LEVEL 4-6 [place] Carbonate 300 mg 01/09/18 11:00 02/04/18 09:55 Eskalith - PO 300 mg BID CARMELO Administration Loperamide HCl 4 mg 01/03/18 12:38 Imodium - PO Q6H PRN DIARRHEA Magnesium Citrate 300 ml 01/03/18 12:38 Citroma - PO Q48H PRN CONSTIPATION Magnesium Hydroxide 30 ml 01/03/18 12:38 Milk Of Magnesia - PO DAILY PRN CONSTIPATION Multi-Ingredient Lotion 1 applic 01/09/18 12:45 02/04/18 09:55 Eucerin (Small Jar) - TP 1 applic BID CARMELO Administration Nicotine 21 mg 01/03/18 13:15 02/04/18 09:56 Nicoderm Patch - TD Not Given DAILY CARMELO Nicotine Polacrilex 2 mg 01/03/18 12:38 01/13/18 09:28 Nicorette Gum - BC 2 mg Q2H PRN Administration NICOTINE REPLACEMENT RX Ondansetron HCl 4 mg 01/09/18 09:28 Zofran Odt - SL Q6H PRN NAUSEA AND/OR VOMITING Multivit/Folic Acid/Iron 1 tab 01/04/18 10:00 02/04/18 09:55 Vitamins (Sjr) - PO 1 tab DAILY CARMELO Administration Pseudoephedrine/Triprolidine 1 combo 01/03/18 12:38 Actifed - PO TID PRN NASAL CONGESTION Quetiapine Fumarate 100 mg 01/18/18 22:30 02/03/18 22:00 Seroquel - PO 100 mg HS CARMELO Administration Thiamine HCl 100 mg 01/03/18 22:00 02/03/18 22:00 Vitamin B1 - PO 100 mg HS CARMELO Administration Tolnaftate 1 applic 01/05/18 12:45 02/04/18 09:55 Tinactin 1% Cream - TP 1 applic BID CARMELO Administration Current Side Effect: No Lab tests ordered: No Lab tests reviewed: Yes Provider note:: Otoniel Trejo [place] Prozac 10 mg po am,Li 300 mg po bid and Seroquel 100 mg po hs. Total face to face time:: 30
== END 2018-02-04 10:20 | disposition home or self-care (01) | DRG 895 ==
LOC: YASAS 08:36 → Y6N 11:21 → Y3E 01-07 12:18
PROVIDERS: ADMIT Internal Medicine; ATTEND Psychiatry & Neurology Psychiatry
PROC: HZ2ZZZZ Detoxification Services for Substance Abuse Treatment (ICD-10-PCS; principal; 2018-01-03)
PROC: HZ42ZZZ Group Counseling for Substance Abuse Treatment, Cognitive-Behavioral (ICD-10-PCS; 2018-01-07)
DX: F10.230 Alcohol dependence with withdrawal, uncomplicated (principal); F31.89 Other bipolar disorder; G40.509 Epileptic seizures related to external causes, not intractable, without status epilepticus; F12.20 Cannabis dependence, uncomplicated; F17.210 Nicotine dependence, cigarettes, uncomplicated; F43.10 Post-traumatic stress disorder, unspecified; F19.24 Other psychoactive substance dependence with psychoactive substance-induced mood disorder; Z59.0 Homelessness
CPT/HCPCS: 36415; 80053; 80178; 81003; 85027; 86593; 87389; 93005; 93010; Q0162